=== PATIENT | male | born 1970 | race Two or more races ===

== ENCOUNTER 2016-11-30 11:12 | Emergency (ER) | payer BC, MEDICAID ==
[2016-11-30 12:23] LABS: BASO % 0.3 % (0-6); EOS % 1.3 % (0-6); GRAN % 54.4 % (47-80); HEMATOCRIT 43.3 % (42.0-52.0); HEMOGLOBIN 14.4 gm/dl (14.0-18.0); LYMPH % 36.2 % (16-45); MEAN CELL VOLUME 86.1 fl (81-97); MEAN CORPUSCULAR HEMOGLOBIN 28.6 pg (27-33); MEAN CORPUSCULAR HGB CONC 33.3 g/dl (32-36); MEAN PLATELET VOLUME 9.8 fl (7.4-10.4); MONO % 7.8 % (0-9); PLATELET COUNT 281 K/uL (130-400); RED BLOOD COUNT 5.03 M/uL (4.40-5.70); RED CELL DISTRIBUTION WIDTH 13.1 % (11.5-14.5); WHITE BLOOD COUNT W/O DIFF 7.1 K/uL (4.2-12.2)
[2016-11-30 12:31] LABS: URINE APPEARANCE SL CLOUDY; URINE BILIRUBIN NEGATIVE (NEGATIVE); URINE BLOOD TRACE-I (NEGATIVE); URINE COLOR ORANGE; URINE GLUCOSE (UA) NEGATIVE (NEGATIVE); URINE KETONE NEGATIVE (NEGATIVE); URINE LEUKOCYTE ESTERASE NEGATIVE (NEGATIVE); URINE NITRITE NEGATIVE (NEGATIVE); URINE PROTEIN TRACE (NEGATIVE)
[2016-11-30 12:33] LABS: ANION GAP 14.1 (7-16); BLOOD UREA NITROGEN 16 mg/dL (9-20); CARBON DIOXIDE 24.9 mmol/L (22-30); CREATININE 0.7 mg/dL (0.66-1.25); EST GLOMERULAR FILTRATION RATE > 60 ml/min; GLUCOSE,RANDOM 111 mg/dL (70-110)
[2016-11-30 12:39] LABS: URINE BACTERIA NONE SEEN; URINE EPITHELIAL CELLS 0 - 2 (FEW); URINE RBC NONE SEEN (NONE SEEN); URINE WBC NONE SEEN (0-2/hpf)
[2016-11-30] MEDS ORDERED: HYDROMORPHONE HCL 1 MG/ML CPJ IVP ONE (13:10)
[2016-11-30] MEDS ORDERED: PROMETHAZINE HCL 25 MG/ML VIAL IVP ONE (13:10)
[2016-11-30] MEDS ORDERED: 0.9 % SODIUM CHLORIDE 1,000 ML BAG IV ONE (13:17)
--- NOTE | 2016-11-30 14:59 | Emergency Department Record ---
History of Present Illness - General Chief complaint: Male Urogenital Problem Stated complaint: PAIN IN L ABD Time Seen by Provider: 11/30/16 11:49 Source: Patient Mode of Arrival: Ambulatory Limitations: No limitations - History of Present Illness Initial comments: pt c/o pain in his testicle and lower abdomen for a month that is getting progresively worse. he states he has a hx of a hernia. Onset/Timin -: Week(s) Location: Abdomen, Left testicle, Right testicle Severity scale (1-10): 8 Quality: Sharp Consistency: Intermittent Worsens with: Palpation Reports: Denies other symptoms - Related Data Home Medications Medication Instructions Recorded Confirmed Last Taken Metoprolol/Hydrochlorothiazide 1 each PO DAILY 11/30/16 11/30/16 1 Day Ago [Metoprolol-Hctz 100-25 mg Tab] Previous Rx's Medication Instructions Recorded Doxycycline Hyclate [Doxycycline] 100 mg PO BID #20 cap 11/30/16 Allergies Allergy/AdvReac Type Severity Reaction Status Date / Time No Known Drug Allergies Allergy Verified 02/09/16 22:40 Travel Screening - Travel/Exposure Within Last 30 Days Have you traveled within the last 30 days?: No - Travel/Exposure Within Last Year Have you traveled outside the [place] in the last year?: No - Additonal Travel Details Have you been exposed to anyone with a communicable illness?: No - Travel Symptoms Symptom Screening: None Review of Systems Reviewed: No additional complaints except as noted below Constitutional: Reports: As per HPI. Denies: Chills, Fever, Malaise, Night sweats, Weakness, Weight change Eyes: Reports: As per HPI. Denies: Eye discharge, Eye pain, Photophobia, Vision change ENT: Reports: As per HPI. Denies: Congestion, Dental pain, Ear pain, Epistaxis , Hearing loss, Throat pain Respiratory: Reports: As per HPI. Denies: Cough, Dyspnea, Hemoptysis, Stridor, Wheezes Cardiovascular: Reports: As per HPI. Denies: Arrhythmia, Chest pain, Dyspnea on exertion, Edema, Murmurs, Orthopnea, Palpitations, Paroxysmal nocturnal dyspnea, Rheumatic Fever, Syncope Endocrine: Reports: As per HPI. Denies: Fatigue, Heat or cold intolerance, Polydipsia, Polyuria Gastrointestinal: Reports: As per HPI. Denies: Abdominal pain, Constipation, Diarrhea, Hematemesis, Hematochezia, Melena, Nausea, Vomiting Genitourinary: Reports: As per HPI. Denies: Dysuria, Frequency, Hematuria, Incontinence, Retention, Testicular pain, Testicular mass, Urgency Musculoskeletal: Reports: As per HPI. Denies: Arthralgia, Back pain, Gout, Joint swelling, Myalgia, Neck pain Skin: Reports: As per HPI. Denies: Bruising, Change in color, Change in hair/ nails, Lesions, Pruritus, Rash Neurological: Reports: As per HPI. Denies: Abnormal gait, Confusion, Headache, Numbness, Paresthesias, Seizure, Tingling, Tremors, Vertigo, Weakness Psychiatric: Reports: As per HPI. Denies: Anxiety, Auditory hallucinations, Depression, Homicidal thoughts, Suicidal thoughts, Visual hallucinations Hematological/Lymphatic: Reports: As per HPI. Denies: Anemia, Blood Clots, Easy bleeding, Easy bruising, Swollen glands Past Medical History - SOCIAL HISTORY Smoking Status: Former smoker Alcohol Use: Occassional Drug Use: None - RESPIRATORY Hx Respiratory Disorders: No - CARDIOVASCULAR Hx Cardio Disorders: Yes Hx Hypertension: Yes - NEURO Hx Neuro Disorders: No - GI Hx GI Disorders: No - Hx Genitourinary Disorders: No - ENDOCRINE Hx Endocrine Disorders: No - MUSCULOSKELETAL Hx Musculoskeletal Disorders: No - PSYCH Hx Psych Problems: No - HEMATOLOGY/ONCOLOGY Hx Hematology/Oncology Disorders: No Family Medical History Any Significant Family History?: Yes Hx Cancer: Father Hx Heart Disease: Father, Grandparents Hx Stroke: Father Physical Exam - General General Appearance: Alert, Oriented x3, Cooperative, Mild distress - Head Head exam: Normal inspection - Eye Eye exam: Normal appearance, PERRL, EOMI Pupils: Normal accommodation - ENT ENT exam: Normal exam, Mucous membranes moist, Normal external ear exam, Normal orophraynx Ear exam: Normal external inspection. negative: External canal tenderness Nasal Exam: Normal inspection. negative: Discharge, Sinus tenderness Mouth exam: Normal external inspection, Tongue normal Teeth exam: Normal inspection. negative: Dental caries Throat exam: Normal inspection. negative: Tonsillar erythema, Tonsillar exudate - Neck Neck exam: Normal inspection, Full ROM. negative: Tenderness - Respiratory Respiratory exam: Normal lung sounds bilaterally. negative: Respiratory distress - Cardiovascular Cardiovascular Exam: Regular rate, Normal rhythm, Normal heart sounds - GI/Abdominal GI/Abdominal exam: Soft, Normal bowel sounds, Tenderness - Rectal Rectal exam: Deferred - exam: Testicular tenderness - Extremities Extremities exam: Normal inspection, Full ROM, Normal capillary refill. negative: Tenderness - Back Back exam: Reports: Normal inspection, Full ROM. Denies: Muscle spasm, Rash noted, Tenderness - Neurological Neurological exam: Alert, CN II-XII intact, Normal gait, Oriented X3 - Psychiatric Psychiatric exam: Normal affect, Normal mood - Skin Skin exam: Dry, Intact, Normal color, Warm Course Vital Signs 11/30/16 11/30/16 11:20 13:08 Temperature 98.1 F Pulse Rate 88 Pulse Rate [ 69 Pulse Ox Probe] Respiratory 16 18 Rate Blood Pressure 137/83 Blood Pressure 125/71 [Right Arm] Pulse Ox 96 99 Medical Decision Making - Management Options MDM Management: No Additional Work-up Planned - Data Complexity MDM Data: Labs Ordered and/or Reviewed, X-Ray Ordered and/or Reviewed - Lab Data Result diagrams: 11/30/16 12:15 11/30/16 12:15 Lab Results 11/30/16 11/30/16 11/30/16 Range/Units 12:15 12:15 12:28 WBC 7.1 (4.2-12.2) K/uL RBC 5.03 (4.40-5.70) M/uL Hgb 14.4 (14.0-18.0) gm/dl Hct 43.3 (42.0-52.0) % MCV 86.1 (81-97) fl MCH 28.6 (27-33) pg MCHC 33.3 (32-36) g/dl RDW 13.1 (11.5-14.5) % Plt Count 281 (130-400) K/uL MPV 9.8 (7.4-10.4) fl Gran % 54.4 (47-80) % Lymphocytes % 36.2 (16-45) % Monocytes % 7.8 (0-9) % Eosinophils % 1.3 (0-6) % Basophils % 0.3 (0-6) % Sodium 142 (136-145) mmol/L Potassium 3.5 (3.5-5.1) mmol/L Chloride 103 (98-107) mmol/L Carbon Dioxide 24.9 (22-30) mmol/L Anion Gap 14.1 (7-16) BUN 16 (9-20) mg/dL Creatinine 0.7 (0.66-1.25) mg/dL Estimated GFR > 60 ml/min Random Glucose 111 H (70-110) mg/dL Calcium 8.9 (8.5-10.1) mg/dL Urine Color Posey H Urine Appearance Sl cloudy Urine pH 6.0 (5.0-8.0) Ur Specific Rudyard 1.025 (1.002-1.030) Urine Protein Trace H (NEGATIVE) Urine Glucose (UA) Negative (NEGATIVE) Urine Ketones Negative (NEGATIVE) Urine Blood Trace-i (NEGATIVE) Urine Nitrite Negative (NEGATIVE) Urine Bilirubin Negative (NEGATIVE) Urine Urobilinogen 1.0 (0.20 - 1.00) E.U./dL Ur Leukocyte Esterase Negative (NEGATIVE) Urine RBC None seen (NONE SEEN) Urine WBC None seen (0-2/hpf) Ur Epithelial Cells 0 - 2 (FEW) Urine Bacteria None seen Disposition Disposition: Discharge Clinical Impression: Acute epididymitis Disposition: Home, Self-Care Condition: (1) Good Instructions: Epididymitis (ED) Additional Instructions: follow up with urology. return sooner if worse. Prescriptions: Doxycycline Hyclate [Doxycycline] 100 mg PO BID #20 cap Referrals: KEIRA PEREIRA M.D. [MEDICAL DOCTOR] - [facility] [Provider Group] Forms: Patient Portal Access
[2016-11-30] MEDS ORDERED: CEFTRIAXONE 250 MG VIAL IM ONE (15:03)
--- NOTE | 2016-12-04 12:34 | CT SCAN REPORT ---
EXAM: CT OF THE ABDOMEN AND PELVIS WITH CONTRAST HISTORY: LOWER ABDOMINAL PAIN. TROUBLE URINATING AND POLYURIA FOR TWO MONTHS. TECHNIQUE: Routine post contrast CT images of the abdomen and pelvis were obtained following the intravenous administration of 100 ml of Omnipaque 300. Comparison: 02/09/16. FINDINGS: The visualized lung bases are unremarkable. The liver, gallbladder, pancreas, spleen, and adrenals are unchanged. Tiny hepatic hypodensities are again noted statistically cysts or hemangiomas. The kidneys enhance and excrete contrast normally. There is a small exophytic cyst within the posterior aspect of the right kidney which is subcentimeter in size and difficult to fully characterize. The bowel is normal in caliber. The appendix is surgically absent. The bladder appears unremarkable. Excreted contrast is also dependently within the bladder on delayed images which also appears unremarkable. Note is made of mild prostate enlargement measuring 5.6 x 4.5 cm. The aorta enhances normally with contrast. No abdominal or pelvic lymphadenopathy. No free air or free fluid. No acute osseous abnormality. There is a small fat containing right inguinal hernia. IMPRESSION: 1. MILD PROSTATE ENLARGEMENT. THIS COULD BE THE CAUSE OF THE PATIENT'S SYMPTOMATOLOGY. 2. SUBCENTIMETER EXOPHYTIC CYST POSTERIOR RIGHT KIDNEY NOT SIGNIFICANTLY CHANGED THOUGH TOO SMALL TO FULLY CHARACTERIZE. 3. SIMILAR TINY SUBCENTIMETER HEPATIC HYPODENSITIES ALSO TOO SMALL TO FULLY CHARACTERIZE. THESE ARE STATISTICALLY CYSTS OR HEMANGIOMAS. JOB NUMBER: [id number] MTDD
== END 2016-11-30 15:29 | disposition home or self-care (01) ==
LOC: ER 11:12
DX: N45.1 Epididymitis (principal); R35.0 Frequency of micturition; R10.30 Lower abdominal pain, unspecified; Z87.891 Personal history of nicotine dependence
CPT/HCPCS: 99284 ×2; 96374; 96372; 96375; 85025; 80048; 81001; 74177; Q9967; J0696; J1170; J2550; J7030

== ENCOUNTER 2018-09-01 12:14 | Emergency (ER) | payer BC ==
[2018-09-01] MEDS ORDERED: ASPIRIN 81 MG CHEWABLE TABLET PO ONE (12:20)
[2018-09-01] MEDS ORDERED: 0.9 % SODIUM CHLORIDE 1000ML 1,000 ML IV PRN (12:23)
--- NOTE | 2018-09-01 12:30 | Emergency Department Record ---
History of Present Illness - General Chief Complaint: Chest Pain Stated Complaint: CHEST PAIN Time Seen by Provider: 09/01/18 12:22 Source: Patient, RN notes reviewed - History of Present Illness Initial Comments: chest pain which started at 9 am and initially seen at [facility] care and sent to the ED and he states he was at work when this started and no nausea and a little sweaty. Seen by Dr. Caballero about one month ago. Patient bikes 40 miles at a time and no chest pain last ride 2 weeks ago. MD Complaint: Chest pain - Related Data Home Medications Medication Instructions Recorded Confirmed Last Taken Aspirin [Aspir-Low] 81 mg PO DAILY 09/01/18 09/01/18 09/01/18 Allergies Allergy/AdvReac Type Severity Reaction Status Date / Time No Known Drug Allergies Allergy Unverified 03/11/18 08:14 Review of Systems Reviewed: No additional complaints except as noted below Constitutional: Reports: As per HPI. Denies: Chills, Fever, Malaise, Night sweats, Weakness, Weight change Eyes: Reports: As per HPI. Denies: Eye discharge, Eye pain, Photophobia, Vision change ENT: Reports: As per HPI. Denies: Congestion, Dental pain, Ear pain, Epistaxis , Hearing loss, Throat pain Respiratory: Reports: As per HPI. Denies: Cough, Dyspnea, Hemoptysis, Stridor, Wheezes Cardiovascular: Reports: As per HPI, Chest pain. Denies: Arrhythmia, Dyspnea on exertion, Edema, Murmurs, Orthopnea, Palpitations, Paroxysmal nocturnal dyspnea, Rheumatic Fever, Syncope Endocrine: Reports: As per HPI. Denies: Fatigue, Heat or cold intolerance, Polydipsia, Polyuria Gastrointestinal: Reports: As per HPI. Denies: Abdominal pain, Constipation, Diarrhea, Hematemesis, Hematochezia, Melena, Nausea, Vomiting Genitourinary: Reports: As per HPI. Denies: Dysuria, Frequency, Hematuria, Incontinence, Retention, Testicular pain, Testicular mass, Urgency Musculoskeletal: Reports: As per HPI. Denies: Arthralgia, Back pain, Gout, Joint swelling, Myalgia, Neck pain Skin: Reports: As per HPI. Denies: Bruising, Change in color, Change in hair/ nails, Lesions, Pruritus, Rash Neurological: Reports: As per HPI. Denies: Abnormal gait, Confusion, Headache, Numbness, Paresthesias, Seizure, Tingling, Tremors, Vertigo, Weakness Psychiatric: Reports: As per HPI. Denies: Anxiety, Auditory hallucinations, Depression, Homicidal thoughts, Suicidal thoughts, Visual hallucinations Hematological/Lymphatic: Reports: As per HPI. Denies: Anemia, Blood Clots, Easy bleeding, Easy bruising, Swollen glands Past Medical History - SOCIAL HISTORY Smoking Status: Former smoker Drug Use: None - RESPIRATORY Hx Respiratory Disorders: No - CARDIOVASCULAR Hx Cardio Disorders: Yes Hx Hypertension: Yes - NEURO Hx Neuro Disorders: No - GI Hx GI Disorders: No - Hx Genitourinary Disorders: No - ENDOCRINE Hx Endocrine Disorders: No - MUSCULOSKELETAL Hx Musculoskeletal Disorders: No - PSYCH Hx Psych Problems: No - HEMATOLOGY/ONCOLOGY Hx Hematology/Oncology Disorders: No Family Medical History Hx Cancer: Father Hx Heart Disease: Father, Grandparents Hx Stroke: Father Physical Exam - General General Appearance: Alert, Oriented x3, Cooperative, Moderate distress - Head Head exam: Normal inspection - Eye Eye exam: Normal appearance, PERRL Pupils: Normal accommodation - ENT ENT exam: Normal exam, Mucous membranes moist, Normal external ear exam, Normal orophraynx, TM's normal bilaterally Ear exam: Normal external inspection. negative: External canal tenderness Nasal Exam: Normal inspection. negative: Discharge, Sinus tenderness Mouth exam: Normal external inspection, Tongue normal Teeth exam: Normal inspection. negative: Dental caries Throat exam: Normal inspection. negative: Tonsillar erythema, Tonsillar exudate - Neck Neck exam: Normal inspection, Full ROM. negative: Tenderness - Respiratory Respiratory exam: Normal lung sounds bilaterally. negative: Respiratory distress - Cardiovascular Cardiovascular Exam: Regular rate, Normal rhythm, Normal heart sounds - GI/Abdominal GI/Abdominal exam: Soft, Normal bowel sounds. negative: Tenderness - Rectal Rectal exam: Deferred - exam: Deferred - Extremities Extremities exam: Normal inspection, Full ROM, Normal capillary refill. negative: Tenderness - Back Back exam: Reports: Normal inspection, Full ROM. Denies: Muscle spasm, Rash noted, Tenderness - Neurological Neurological exam: Alert, Normal gait, Oriented X3, Reflexes normal - Psychiatric Psychiatric exam: Normal affect, Normal mood - Skin Skin exam: Dry, Intact, Normal color, Warm Course - Reevaluation(s) Reevaluation #1: chest pain is worse with palpation and he states he has psoriatic arthritis 09/01/18 12:37 Reevaluation #2: 10/31/18 13:[address] Sandoval and will transfer to [facility] to service for admission and a cardiology consult Reevaluation #3: Dr. Marley contacted and he accepted the patient and will transfer to [facility] 09/01/18 13:08 Reevaluation #4: chest pain free now 09/01/18 13:36 Medical Decision Making - Data Complexity MDM Data: Labs Ordered and/or Reviewed, X-Ray Ordered and/or Reviewed, EKG Ordered and/or Reviewed (ekg st evevation in 3 and nonspecific changes in the anterior leads) - Lab Data Result diagrams: 09/01/18 12:20 09/01/18 12:20 Disposition Clinical Impression: Chest pain Qualifiers: Chest pain type: chest pain due to myocardial ischemia Ischemic chest pain type : unstable angina pectoris Qualified Code(s): I20.0 - Unstable angina Disposition: Acute Care Hospital Transfer Condition: (2) Stable Forms: Patient Portal Access Time of Disposition: 13:06 Quality - Quality Measures Quality Measures: N/A - Blood Pressure Screening Does Patient Have Any of the Following: No, Active Dx of HTN Blood Pressure Classification: Hypertensive Reading Systolic Measurement: 138 Diastolic Measurement: 103 Screening for High Blood Pressure: Patient Exclusion, Hx of HTN [[id number]]
[2018-09-01] MEDS: NITROGLYCERIN 0.4MG SL TABLET #25 BTL SL PRN ×3 (12:31→12:47)
[2018-09-01 12:37] LABS: BASO % 0.5 % (0-6); GRAN % 53.3 % (47-80); HEMATOCRIT 45.1 % (42.0-52.0); HEMOGLOBIN 15.6 gm/dl (14.0-18.0); LYMPH % 38.8 % (16-45); MEAN CELL VOLUME 84.6 fl (81-97); MEAN CORPUSCULAR HEMOGLOBIN 29.3 pg (27-33); MEAN CORPUSCULAR HGB CONC 34.6 g/dl (32-36); MEAN PLATELET VOLUME 9.8 fl (7.4-10.4); MONO % 6.4 % (0-9); PLATELET COUNT 378 K/uL (130-400); RED BLOOD COUNT 5.33 M/uL (4.40-5.70); WHITE BLOOD COUNT W/O DIFF 7.4 K/uL (4.2-12.2)
[2018-09-01] MEDS ORDERED: MORPHINE SULFATE 10 MG/ML VIAL IVP ONE (12:38)
[2018-09-01] MEDS ORDERED: HEPARIN SODIUM 1000 UNIT/1 ML 10ML VIAL IVP ONE (12:39)
[2018-09-01] MEDS ORDERED: HEPARIN SODIUM/D5W 25,000 UNITS/500 ML BAG IV SCH (12:45)
[2018-09-01 12:50] LABS: BLOOD UREA NITROGEN 22 mg/dL (6-20); CREATININE 0.7 mg/dL (0.7-1.2); EST GLOMERULAR FILTRATION RATE > 60 mL/min
[2018-09-01 12:53] LABS: GLUCOSE,RANDOM 96 mg/dL (74-109)
--- NOTE | 2018-09-03 10:18 | RADIOLOGY REPORT ---
DATE: 09/01/2018 at 12:35 p.m. EXAM: SINGLE-VIEW CHEST. HISTORY: CHEST PAIN FOR FOUR HOURS. TECHNIQUE: AP upright views of the chest. COMPARISON: None. FINDINGS: Heart size is normal. No definite acute infiltrate is seen. No pleural effusion or pneumothorax evident. Somewhat lordotic positioning. Hypertrophic spurring in the thoracic spine and at the right acromioclavicular joint. IMPRESSION: 1. LORDOTIC POSITIONING. 2. NO ACUTE INFILTRATE EVIDENT. 3. SPURRING IN THE THORACIC SPINE AND RIGHT ACROMIOCLAVICULAR JOINT. JOB NUMBER: [id number] [facility]
== END 2018-09-01 14:23 | disposition short-term general hospital (02) ==
LOC: ER 12:14
DX: I20.0 Unstable angina (principal); I10 Essential (primary) hypertension; Z87.891 Personal history of nicotine dependence; L40.50 Arthropathic psoriasis, unspecified
CPT/HCPCS: 71045; 80048; 84484; 85025; 85730; 93005; 93010; 96365; 96375; 99285; J2270